=== PATIENT | male | born 1970 | race Caucasian/White ===

== ENCOUNTER 2020-05-14 10:52 | Outpatient (CLI) | payer OTHER, SELFPAY ==
--- NOTE | 2020-05-14 10:55 | ECG_ITS ---
Measurements Intervals [place] Rate: 93 P: 38 PA: 153 QRS: -8 QRSD: 101 T: 14 QT: 329 QTc: 409 Interpretive Statements SINUS RHYTHM VOLTAGE CRITERIA FOR LVH BORDERLINE ECG Electronically Signed On 05-14-2020 11:09:51 GRAIN ORIGINATION SPECIALIST by Андрей Chavez D.O.
== END 2020-05-14 10:53 | disposition home or self-care (01) ==
LOC: ANHSURGERY 10:55
PROVIDERS: Visit Provider Orthopaedic Surgery
DX: Z01.810 Encounter for preprocedural cardiovascular examination (principal); I10 Essential (primary) hypertension
CPT/HCPCS: 93005

== ENCOUNTER → 2020-05-16 05:49 | Outpatient (CLI) | payer OTHER, SELFPAY ==
[2020-05-16 19:11] LABS: SARS-CoV-2 RNA PCR Negative
== END ==
PROVIDERS: Visit Provider Orthopaedic Surgery
DX: Z01.812 Encounter for preprocedural laboratory examination (principal); Z20.822 Contact with and (suspected) exposure to COVID-19
CPT/HCPCS: C9803; U0003; U0005

== ENCOUNTER 2020-05-20 01:02 | Day surgery (SDC) | payer OTHER, SELFPAY ==
[2020-05-13 10:01] VITALS: BMI 27.0
--- NOTE | 2020-05-19 10:59 | WPDANESEPPF ---
Anes - Initial Pre Proc Eval Procedure: Operation Date: 05/20/20 13:30 Proposed Procedures p Left Open Rotator Cuff Repair - Adeel Garner MD Date/Time: 05/19/20 10:59 Surgeon: Adeel Garner MD Pre Op Diagnosis: Left Rotator Cuff Tear Patient Data Age: 49 Gender: M Height: 1.85 m Weight: 93 kg Allergies Allergy/AdvReac Type Severity Reaction Status Date / Time No Known Allergies Allergy Unknown Verified 05/20/20 11:45 Home Medications Medication Instructions Recorded Confirmed Type ramipril 5 mg capsule 5 mg PO BID 12/26/19 05/20/20 History chlorhexidine gluconate 4 % 1 applic TOPICAL ONCE #237 ml 03/17/20 05/20/20 Rx topical liquid aspirin 81 mg PO DAILY 05/13/20 05/20/20 History Patient hx anesthesia problems: post op nausea/vomiting Family hx anesthesia problems: none PMFSH Past Medical History Medical History (Updated 05/19/20 @ 11:00 by Jaime Copeland DO) Factor V Leiden Hypertension Left shoulder pain PONV (postoperative nausea and vomiting) Rotator cuff tendinitis Seasonal allergies Surgical History Surgical History (Updated 05/19/20 @ 11:00 by Jaime Copeland DO) History of cervical spinal surgery Family History Family History Other Diabetes mellitus Heart disease Hypertension Social History Social History Years smoked: 20 Smoking status: Current every day smoker Tobacco type: cigarettes Smoking end date: 03/27/18 Additional smoking assessment comments: 1/2 PACK PER WEEK FOR 20 YEARS Alcohol intake: current Drinks per week: 12 Substance use: never Living arrangements: with family Spiritual care concerns: No Anes - Eval Final PreProcedure Day of Procedure 05/19/20 10:59 Patient weight: overweight Heart: regular rate and rhythm Lungs: clear to auscultation and normal air movement Airway: Mallampati scale class II Neurological: alert and oriented Last oral intake: >/= 8 hours ASA classification: III Emergent: no Anesthetic plan: proceed Anesthesia type and monitoring: general ETT and standard monitoring Informed Consent: The patient's anesthetic plan and its attendant risks and benefits were discussed with the patient/family/POA. Questions were solicited and answers provided to the satisfaction of the patient/family/POA.
--- NOTE | 2020-05-19 11:00 | WPDANESPNB ---
Anes - Peripheral Nerve Block Date/Time: 05/19/20 11:00 I have discussed with the patient/family/POA the placement of a peripheral nerve block for post-operative pain management, including associated risks, benefits, complications, and side effects. Alternative methods of post-operative analgesia were detailed. Questions were solicited and answers provided to the satisfaction of the patient/family/POA. Time-Out: A pre-procedural Time-Out was completed immediately before starting the procedure and confirmed: Patient Identification, Site, Procedure, Patient Position and the Availability of Requisite Equipment. Clinical Indications: Acute post-operative pain management requested by the operative surgeon. Nerve Block Insertion Note Anes-nerve block: interscalene left Patient position: supine Skin prep: chlorhexidine Needle: 22 gauge, stimulating, insulated echogenic needle. Needle length: 50 mm Technique: ultrasound Injectate: bupivacaine 0.5% with epi 5 mcg/ml (30cc- no epi) Observations: tolerated well Complications: none Procedure start time:: 1401 Procedure end time:: 140
[2020-05-20] VITALS (7 sets, daily range): BP systolic 117–133; BP diastolic 79–91; PULSE 66–88; RESP 12–20; TEMP 36.3–37.4; O2SAT 96–100
--- NOTE | 2020-05-20 07:24 | WPDHPUPDATE1 ---
History and Physical Update Update Date/Time: 05/20/20 07:24 History and Physical has been reviewed, including an updated exam of the patient. There are NO changes in the patient's condition. Risks, benefits, and alternatives have been discussed and questions answered. Patient agrees to proceed with procedure.
[2020-05-20] MEDS: FAMOTIDINE 20 MG/2 ML VIAL IV PUSH (13:15)
[2020-05-20] MEDS: SCOPOLAMINE 1.5 MG PATCH TRANSDERM (13:15)
[2020-05-20] MEDS: CELECOXIB 200 MG CAPSULE PO (13:15)
[2020-05-20] MEDS: ACETAMINOPHEN 500 MG TABLET 1000 MG PO (13:15)
[2020-05-20] MEDS: LACTATED RINGERS 1,000 ML 30 ML IV CONT ×2 (13:49→16:27)
[2020-05-20] MEDS: ceFAZolin 2 GM/D5W 50 ML 2 GM/50 ML BAG IVPB (14:28)
--- NOTE | 2020-05-20 16:05 | PM.PROC ---
Procedure Note - Detailed Date of procedure: 05/20/20 Pre-op diagnosis: Left Rotator Cuff Tear Post-op diagnosis: same Procedure performed: REPAIR OF LEFT ROTATOR CUFF Description of procedure: THE PATIENT WAS TAKEN TO THE OPERATING ROOM AND THEN INTUBATED AND PLACED IN THE BEACH CHAIR POSITION. THE LEFT UPPER EXTREMITY WAS PREPPED AND DRAPED IN THE NORMAL STERILE FASHION. AN INCISION WAS MADE IN BETWEEN THE KEISHA-LATERAL ACROMION AND THE AC JOINT. THE FASCIA WAS IDENTIFIED. NEXT A MINI OPEN INCISION WAS MADE THROUGH THE DELTOID MUSCLE EXPOSING THE SUBACROMIAL SPACE. A LIMITED ACROMIOPLASTY WAS PREFORMED. THE ROTATOR CUFF WAS IDENTIFIED. THERE WAS A FULL THICKNESS TEAR TO REGION BETWEEN THE INFRASPINATUS AND SUPRASPINATUS PARTS OF THE CUFF. THERE WAS MILD RETRACTION. THE TEAR MEASURED ABOUT 3 CM FROM ANTERIOR TO POSTERIOR. THE GREATER TUBEROSITY WAS DEBRIDED TO BLEEDING BONE. 2 ARTHREX 5.5 SUTURE ANCHORS WERE PLACED IN TO GOOD BONE AND HAD VERY GOOD BITES. KYLIE-LEX TYPE REPAIRS WERE DONE TO THE ROTATOR CUFF AND THERE WAS GOOD APPROXIMATION TO THE GREATER TUBEROSITY. THE REPAIR WAS EXCELLENT. THERE WAS NO IMPINGEMENT ON THE REPAIR FROM THE ACROMION WITH RANGE OF MOTION. THE WOUND WAS IRRIGATED WITH COPIOUS AMOUNTS OF ANTIBIOTIC SOLUTION. THE DELTOID MUSCLE WAS REPAIRED WITH #2 FIBER WIRE AND 0 VICRYL SUTURE. THE SUBCUTANEOUS LAYER WAS APPROXIMATED WITH 2-0 VICRYL. THE SKIN WAS APPROXIMATED WITH 3-0 STRATOFIX AND DERMABOND. STERILE DRESSING WAS APPLIED. PATIENT WAS EXTUBATED. Anesthesia: GETA Surgeon: Adeel Garner MD Estimated blood loss (mL): 15 Complications: No immediate complications Condition: stable Disposition: PACU
== END 2020-05-20 18:20 | disposition home or self-care (01) ==
PROVIDERS: Visit Provider Orthopaedic Surgery
PROC: (CPT 23420; principal; 2020-05-20 13:30)
DX: M75.122 Complete rotator cuff tear or rupture of left shoulder, not specified as traumatic (principal); G89.18 Other acute postprocedural pain; D68.51 Activated protein C resistance; I10 Essential (primary) hypertension; F17.210 Nicotine dependence, cigarettes, uncomplicated
CPT/HCPCS: 23420; 64415; 93005; A9270; C1713; C9803; J0330; J0690; J1100; J2250; J2405; J2704; J3010; J7120; U0003; U0005

== ENCOUNTER 2021-03-02 17:39 | Emergency (ER) | payer OTHER, SELFPAY ==
[2021-03-02 17:48] VITALS: BP 150/97; PULSE 86; RESP 16; TEMP 37; O2SAT 98
--- NOTE | 2021-03-02 18:06 | ED.URI ---
HPI - URI/Sore Throat General Chief Complaint: Upper Respiratory Infection Stated Complaint: congestion sore throat ear ache History of Present Illness HPI Narrative: This is a 50 year old male that has been having a sore throat, cough , congestion and ear pain. According to patient it has been going on for the past two day. Patient denies any nausea and or vomiting. Related Data Home Medications Medication Instructions Recorded Confirmed ramipril 5 mg capsule 5 mg PO BID 12/26/19 03/02/21 aspirin 81 mg PO DAILY 05/13/20 03/02/21 alprazolam 0.25 mg PO BID PRN 03/02/21 03/02/21 citalopram 20 mg PO DAILY 03/02/21 03/02/21 isotretinoin [Claravis] 40 mg PO BID 03/02/21 03/02/21 Allergies Allergy/AdvReac Type Severity Reaction Status Date / Time No Known Allergies Allergy Unknown Verified 07/23/20 11:46 Review of Systems Review of Systems: Cough, congestion, headache, sore throat All systems reviewed & are unremarkable except as noted in HPI and below PMFSH Past Medical History Medical History Factor V Leiden Hypertension Left shoulder pain PONV (postoperative nausea and vomiting) Rotator cuff tendinitis Seasonal allergies Surgical History Surgical History History of cervical spinal surgery Family History Family History Other Diabetes mellitus Heart disease Hypertension Social History Social History Years smoked: 20 Tobacco type: cigarettes Smoking end date: 03/27/18 Additional smoking assessment comments: 1/2 PACK PER WEEK FOR 20 YEARS Alcohol intake: current Drinks per week: 12 Substance use: never Spiritual care concerns: No Comments At time as signature, I have reviewed and agree with nursing past medical, social, surgical and family history. Please see nursing chart for further information. There is no relevant family history pertinent to the presenting complaint. Exam Narrative: GENERAL:Illl-appearing, well-nourished, and in no acute distress. HEAD:Normocephalic EYES: PERRLA ENT: Nares clear, no rhinorrhea Copious pharygeal erythema enlarged tonsil Mucous membranes moist. CHEST: Clear to auscultation. HEART: Regular rate and rhythm. ABDOMEN: Soft, nontender, normal active bowel sounds. EXTREMITIES: Normal range of motion. SKIN: Warm, dry, no rash. NEURO: No focal deficits. Alert and oriented x3. Course GENERAL LOT ATTENDANT/PA Physician Supervision Negative influenza , Negative Strep Vital Signs Vital signs: Vital Signs Temperature 98.6 F 03/02/21 17:48 Pulse Rate 86 03/02/21 17:48 Respiratory Rate 16 03/02/21 17:48 Blood Pressure 150/97 H 03/02/21 17:48 Pulse Oximetry 98 03/02/21 17:48 Temperature 98.6 F 03/02/21 17:48 Pulse Rate 86 03/02/21 17:48 Respiratory Rate 16 03/02/21 17:48 Blood Pressure 150/97 H 03/02/21 17:48 Pulse Oximetry 98 03/02/21 17:48 MDM - URI/Sore Throat Differential Diagnosis Differential diagnosis: Likely upper respiratory infection, otitis media, sinusitis, viral infection, bronchitis, influenza and pharyngitis Discharge Plan Discharge Clinical Impression: Upper respiratory infection, Acute tonsillitis, Hypertension Patient Disposition: Home, Self-Care Condition: Stable Instructions: Antibiotic Form, Viral Syndrome (ED) Additional Instructions: Take the medication as prescribed. Salt water gargles and/or may use topical anesthetic (eg. Chloraseptic spray) Take tylenol and ibuprofen as needed for pain and fever as directed. Throw away the toothbrush after 24hours of antibiotic. Follow up with primary care provider in 2-3 days if condition is not improving or seek ER visit if your child starts breathing fast/has trouble breathing, is not drinking enough fluids, will not wake up or
== END 2021-03-02 18:34 | disposition home or self-care (01) ==
PROVIDERS: Emergency Provider Nurse Practitioner Family
DX: J06.9 Acute upper respiratory infection, unspecified (principal); J03.90 Acute tonsillitis, unspecified; I10 Essential (primary) hypertension; F17.210 Nicotine dependence, cigarettes, uncomplicated; D68.51 Activated protein C resistance
CPT/HCPCS: 87081; 87804; 87880; 99213; G0463

== ENCOUNTER 2022-04-05 09:48 | Outpatient (CLI) | payer OTHER, SELFPAY ==
[2022-04-05 19:33] LABS: Hematocrit 44.8 % (42.0-52.0); Mean Corpuscular HGB Conc 33.5 g/dl (32-36); Mean Corpuscular Hemoglobin 32.1 pg (26-34); Mean Corpuscular Volume 95.9 fl (80-100); Mean Platelet Volume 9.4 fl (7.4-10.4); Platelet Count Result 243 k/mm3 (150-375); Red Blood Count 4.67 M/mm3 (4.6-6.20); Red Cell Distribution Width 12.6 % (11.5-14.5); White Blood Count 6.1 K/mm3 (4.5-10.0)
[2022-04-05 19:49] LABS: Alanine Aminotransferase 53 U/L (6-50); Albumin Level 4.3 g/dL (3.5-5.1); Alkaline Phosphatase 123 U/L (38-126); Anion Gap 4 mmol/L (8-16); Aspartate Amino Transferase 73 U/L (17-59); Blood Urea Nitrogen 18 mg/dL (9-20); Calcium 8.9 mg/dL (8.4-10.2); Carbon Dioxide 30 mmol/L (22-30); Chloride 105 mmol/L (98-107); Cholesterol 202 mg/dL (0-200); Estimated Glomerular Filt Rate > 60; Glucose 92 mg/dL (65-110); HDL Direct 49 mg/dL; Potassium 4.7 mmol/L (3.4-5.0); Sodium 139 mmol/L (137-145); Triglycerides 84 mg/dL (<150)
[2022-04-05 20:00] LABS: LDL Cholesterol Direct 113 mg/dL
[2022-04-05 20:20] LABS: Prostate Specific Antigen 0.6 ng/mL (< OR = 4.0)
== END 2022-04-05 09:49 | disposition home or self-care (01) ==
PROVIDERS: PCP Family Medicine; Visit Provider Family Medicine
DX: Z00.00 Encounter for general adult medical examination without abnormal findings (principal); D68.51 Activated protein C resistance; I10 Essential (primary) hypertension; J30.2 Other seasonal allergic rhinitis
CPT/HCPCS: 36415; 80053; 80061; 80299; 84153; 85027; G0103

== ENCOUNTER 2022-04-13 12:00 | Outpatient (CLI) | payer OTHER, SELFPAY ==
[2022-04-13 20:33] LABS: Alanine Aminotransferase 47 U/L (6-50); Albumin Level 4.4 g/dL (3.5-5.1); Alkaline Phosphatase 116 U/L (38-126); Aspartate Amino Transferase 60 U/L (17-59); Bilirubin,Total 0.8 mg/dL (0.2-1.3)
[2022-04-13 20:48] LABS: Hepatitis B Surface Antigen Negative (Negative)
[2022-04-13 20:54] LABS: HAV RESULT Negative (Negative); Hepatitis B Core IgM Result Negative (Negative)
[2022-04-13 21:06] LABS: Hepatitis C Virus Antibody Negative (Negative)
== END 2022-04-13 12:01 | disposition home or self-care (01) ==
PROVIDERS: PCP Family Medicine; Visit Provider Family Medicine
DX: R74.8 Abnormal levels of other serum enzymes (principal)
CPT/HCPCS: 36415; 80074; 80076

== ENCOUNTER 2022-05-17 08:58 | Outpatient (CLI) | payer OTHER, SELFPAY ==
--- NOTE | ~2022-05-17 | XR_ITS ---
XR sinus min 3V 05/17/2022 09:11 Indication: Sinusitis Procedure: 5 views paranasal sinuses Comparison: No prior studies for comparison. Findings: There is partial opacification of the right maxillary sinus, consistent with mucosal thicke juan antonio. No air-fluid levels demonstrated. Remainder of the paranasal sinuses are pneumatized. Mastoids are pneumatized. No significant nasal septal deviation. Impression: 1: Partial opacification right maxillary sinus, consistent with sinusitis. Reviewed, dictated and finalized at location L. ER TRIMMER Impression: 1: Partial opacification right maxillary sinus, consistent with sinusitis.
== END 2022-05-17 08:59 | disposition home or self-care (01) ==
LOC: ANHBWCIMG 08:59
PROVIDERS: PCP Family Medicine; Visit Provider Family Medicine
DX: J34.89 Other specified disorders of nose and nasal sinuses (principal)
CPT/HCPCS: 70220

== ENCOUNTER 2022-09-08 14:52 | Outpatient (CLI) | payer OTHER, SELFPAY ==
--- NOTE | ~2022-09-08 | XR_ITS ---
XR shoulder LT min 2V 09/08/2022 15:04 Indication: Left shoulder pain. Procedure: 4 views left shoulder Comparison: 12/26/2019 Findings: No fracture, subluxation or dislocation. No significant soft tissue abnormality. No foreign bodies. Impression: 1: No acute bone or joint abnormality. Reviewed, dictated and finalized at location L. Impression: 1: No acute bone or joint abnormality.
== END 2022-09-08 14:53 | disposition home or self-care (01) ==
LOC: ANHBWCIMG 14:53
PROVIDERS: PCP Family Medicine; Visit Provider Nurse Practitioner Adult Health
DX: M25.512 Pain in left shoulder (principal)
CPT/HCPCS: 73030

== ENCOUNTER 2023-07-20 10:53 | Outpatient (CLI) | payer OTHER, SELFPAY ==
--- NOTE | ~2023-07-20 | XR_ITS ---
Right elbow Technique: AP, oblique, and lateral views were obtained. Clinical History: Pain Findings: No acute fracture or dislocation is seen. Osseous alignment is anatomic. Joint spaces are p reserved. There is enthesopathic change at the triceps tendon insertion. There is no displacement of the fat pads, and no evidence of joint effusion. Impression: Enthesopathic change at the triceps tendon insertion. Reviewed, dictated and finalized at location M. Impression: Enthesopathic change at the triceps tendon insertion.
--- NOTE | ~2023-07-20 | XR_ITS ---
Right Knee Technique: AP, lateral, and sunrise views were obtained. Clinical History: Pain Findings: No fracture or dislocation is seen. Osseous alignment is anatomic. There is an elongated ch ondroid lesion at the distal femoral shaft, most compatible with enchondroma, measuring at least 8 cm in length. Joint spaces are preserved without degenerative or erosive change. Soft tissues are unrem arkable. No joint effusion is seen. Impression: No acute abnormality. 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 Reviewed, dictated and finalized at location M. Impression: No acute abnormality. 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
== END 2023-07-20 10:54 | disposition home or self-care (01) ==
LOC: ANHBWCIMG 10:56
PROVIDERS: PCP Nurse Practitioner Adult Health; Visit Provider Nurse Practitioner Adult Health
DX: M77.8 Other enthesopathies, not elsewhere classified (principal); M25.561 Pain in right knee
CPT/HCPCS: 73070; 73562

== ENCOUNTER 2023-08-31 07:22 | Day surgery (SDC) | payer OTHER, SELFPAY ==
[2023-07-26 06:16] VITALS: BMI 28.3
[2023-08-31 08:56] VITALS: BP 117/95; PULSE 66; RESP 18; TEMP 36.2; O2SAT 100; BMI 27.6
[2023-08-31] MEDS: LACTATED RINGERS 1,000 ML 150 ML IV CONT (09:07)
--- NOTE | 2023-08-31 09:27 | WPDANESEPPF ---
Anes - Initial Pre Proc Eval Procedure: Operation Date: 08/31/23 10:00 Proposed Procedures p Screening Colonoscopy - Sean Lance MD Date/Time: 08/31/23 09:27 Surgeon: Sean Lance MD Pre Op Diagnosis: Screening for neoplasm of colon Patient Data Age: 52 Gender: M Height: 1.85 m Weight: 95.1 kg Last Vital Signs Temp 36.2 C L 08/31/23 08:56 Pulse 66 08/31/23 08:56 Resp 18 08/31/23 08:56 BP 117/95 H 08/31/23 08:56 Pulse Ox 100 08/31/23 08:56 O2 Del Method Room Air 08/31/23 08:56 Allergies Allergy/AdvReac Type Severity Reaction Status Date / Time No Known Allergies Allergy Unknown Verified 08/31/23 08:53 Home Medications Medication Instructions Recorded Confirmed Type ramipril 10 mg capsule 10 mg PO DAILY #90 caps 12/21/22 08/31/23 Rx citalopram 20 mg tablet 20 mg PO DAILY #90 tabs 05/01/23 08/31/23 Rx mirtazapine 7.5 mg tablet See Rx Instructions .Route 07/18/23 08/31/23 Rx .COMPLEX #90 tabs Vitamin D3 1 tab-cap PO DIRECTED 08/24/23 08/31/23 History krill oil 1 tab-cap PO DIRECTED 08/24/23 08/31/23 History Patient hx anesthesia problems: none Family hx anesthesia problems: none Results Review: All pre-operative results and documents have been reviewed as part of the pre-operative evaluation. [facility] Past Medical History Medical History Factor V Leiden Hypertension Left shoulder pain PONV (postoperative nausea and vomiting) Rotator cuff tendinitis Seasonal allergies Surgical History Surgical History History of cervical spinal surgery Family History Family History Father , Coronary event 06/2016 Acute myocardial infarction Cerebrovascular accident Depression Heart disease Hypertension Congestive heart failure (CHF) Mother Age: 78 Depression Diabetes mellitus Charcot's joint arthropathy in type 2 diabetes mellitus Congestive heart failure (CHF) Social History Social History Years smoked: 20 Smoking status: Former smoker Tobacco type: e-cigarettes/vaping Second hand tobacco smoke exposure: No Smoking end date: 03/27/18 Additional smoking assessment comments: 1/2 PACK PER WEEK FOR 20 YEARS Alcohol intake: current Drinks per week: 12 Substance use: current Substance use type: does not use Lack of Transportation: No Lack of Food: Never True Current Housing: I Have Housing Concerned About Future Housing: No Difficulty Paying Gas/Electric Bills: No Difficulty Paying for Meds: No Currently Unemployed: No Education: Associate Degree Living arrangements: with family Occupation/Education: occupation 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 [employer] Gender identity (if verbalized by the patient): Male Sexual Orientation (if Verbalized by the Patient): Straight or Heterosexual Spiritual care concerns: No Agree to blood products: Yes Anes - Eval Final PreProcedure Day of Procedure 08/31/23 09:27 Patient weight: overweight Heart: regular rate and rhythm Lungs: clear to auscultation Airway: Mallampati scale class II Neurological: alert and oriented Last oral intake: >/= 8 hours ASA classification: II Emergent: no Anesthetic plan: proceed Anesthesia type and monitoring: general GIVS and standard monitoring Results Review: All pre-operative results and documents have been reviewed as part of the pre-operative evaluation. Informed Consent: The patient's anesthetic plan and its attendant risks and benefits were discussed with the patient/family/POA. Questions were solicited and answers provided to the satisfaction of the patient/family/POA.
--- NOTE | 2023-08-31 09:39 | PM.HPGS ---
History of Present Illness History of Present Illness Consent: Risks, benefits, and alternatives have been discussed and questions answered. Patient agrees to proceed with procedure. Chief complaint: history of colon polyps Narrative: Pablo Ding is a 52 year old male presents for screening colonoscopy. Patient's current weight appetite and bowel movements are normal. Patient denies abdominal pain. He has had no bleeding. Family history noncontributory. He reports having had prior colon polyps at previous exam 5 years ago. Review of Systems Review of Systems: All systems reviewed & are unremarkable except as noted in HPI and below PMFSH Past Medical History Medical History Factor V Leiden Hypertension Left shoulder pain PONV (postoperative nausea and vomiting) Rotator cuff tendinitis Seasonal allergies Surgical History Surgical History History of cervical spinal surgery Family History Family History Father , Coronary event 06/2016 Acute myocardial infarction Cerebrovascular accident Depression Heart disease Hypertension Congestive heart failure (CHF) Mother Age: 78 Depression Diabetes mellitus Charcot's joint arthropathy in type 2 diabetes mellitus Congestive heart failure (CHF) Social History Social History Years smoked: 20 Smoking status: Former smoker Tobacco type: e-cigarettes/vaping Second hand tobacco smoke exposure: No Smoking end date: 03/27/18 Additional smoking assessment comments: 1/2 PACK PER WEEK FOR 20 YEARS Alcohol intake: current Drinks per week: 12 Substance use: current Substance use type: does not use Lack of Transportation: No Lack of Food: Never True Current Housing: I Have Housing Concerned About Future Housing: No Difficulty Paying Gas/Electric Bills: No Difficulty Paying for Meds: No Currently Unemployed: No Education: Associate Degree Living arrangements: with family Occupation/Education: occupation 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 [employer] Gender identity (if verbalized by the patient): Male Sexual Orientation (if Verbalized by the Patient): Straight or Heterosexual Spiritual care concerns: No Agree to blood products: Yes Meds Home Medications and Allergies Home Medications Medication Instructions Recorded Confirmed Type ramipril 10 mg capsule 10 mg PO DAILY #90 caps 12/21/22 08/31/23 Rx citalopram 20 mg tablet 20 mg PO DAILY #90 tabs 05/01/23 08/31/23 Rx mirtazapine 7.5 mg tablet See Rx Instructions .Route 07/18/23 08/31/23 Rx .COMPLEX #90 tabs Vitamin D3 1 tab-cap PO DIRECTED 08/24/23 08/31/23 History krill oil 1 tab-cap PO DIRECTED 08/24/23 08/31/23 History Allergies Allergy/AdvReac Type Severity Reaction Status Date / Time No Known Allergies Allergy Unknown Verified 08/31/23 08:53 Vital Signs Vital Signs - 24 hr 08/31/23 08:56 Temperature 97.1 F L Pulse Rate 66 Respiratory Rate 18 Blood Pressure 117/95 H Pulse Oximetry 100 Oxygen Delivery Room Air Exam Narrative: Physical exam reveals patient alert. Vital signs stable. HEENT exam is unremarkable. Patient is anicteric. Lungs are clear to auscultation and percussion. Heart is without murmur or extra sounds. Abdomen bowel sounds are present soft nontender with no organomegaly. Bowel external rectal exam normal. Assessment and Plan Assessment and plan (1) Screening for colon cancer: Code(s): Z12.11 - Encounter for screening for malignant neoplasm of colon Status: Acute Assessment and Plan: Patient reports having had colonoscopy with polyps being identified 5 years ago. Plan for surveillance colonoscopy now. Consider follow-u
[2023-08-31] MEDS: SIMETHICONE ORAL SUSPENSION 20 MG/0.3 ML 30 ML BOTTLE 0.6 ML IRRIGATION (10:40)
[2023-08-31 10:47] VITALS: BP 106/74; PULSE 81; RESP 16; O2SAT 98
[2023-08-31 10:57] VITALS: BP 112/69; PULSE 72; RESP 16; O2SAT 99
[2023-08-31 11:07] VITALS: BP 120/66; PULSE 75; RESP 20; O2SAT 99
--- NOTE | 2023-08-31 11:18 | WPDANESPN ---
Anes - Prog Note Post-Op Date/Time: 08/31/23 11:18 Cardiovascular status: normal Respiratory status: normal Airway patency: baseline Mental status: baseline Post-Op hydration status: normal Vital Signs: Last Vital Signs Temp 36.2 C L 08/31/23 08:56 Pulse 75 08/31/23 11:07 Resp 20 08/31/23 11:07 BP 120/66 08/31/23 11:07 Pulse Ox 99 08/31/23 11:07 O2 Del Method Room Air 08/31/23 11:07 Pain Score (VAS): 0 I/O: Intake & Output 08/30/23 08/31/23 08/31/23 23:59 07:59 15:59 Intake Total 500 Balance 500 Patient Feedback: Patient satisfied with anesthetic care.
== END 2023-08-31 11:15 | disposition home or self-care (01) ==
PROVIDERS: PCP Nurse Practitioner Adult Health; Visit Provider Internal Medicine Gastroenterology
PROC: 0DJD8ZZ Inspection of Lower Intestinal Tract, Via Natural or Artificial Opening Endoscopic (ICD-10-PCS; CPT 45378; principal; 2023-08-31 10:00)
DX: Z86.010 Personal history of colon polyps (principal); K64.8 Other hemorrhoids
CPT/HCPCS: 45378

== ENCOUNTER 2023-11-24 08:12 | Emergency (ER) | payer OTHER, SELFPAY ==
[2023-11-24 08:22] VITALS: BP 115/87; PULSE 77; RESP 16; TEMP 36.3; O2SAT 100
--- NOTE | 2023-11-24 08:36 | ED.SKABFB ---
HPI - Skin/Abscess/Foreign Bdy General Chief complaint: Skin/Abscess/Foreign Body Stated complaint: surgical glue reaction/chin Time Seen by Provider: 11/24/23 08:35 Source: patient, RN notes reviewed and old records reviewed Mode of arrival: ambulatory Limitations: no limitations History of Present Illness HPI narrative: 53-year-old male who presents to [facility] with complaints of having a gum graft 2 days ago to his lower gum in the anterior aspect by his dentist. Patient reports that he is allergic to skin glue and dentist used the skin glue on gum graft. Patient states that he has swelling to his lower lip with some blisters on it, underneath his lip and chin also due to his allergy. Patient denies any shortness of breath or any difficulty swallowing, no trismus noted or any Erik angina. MD complaint: other (rash allergic reaction) Onset (ago): day(s) (2) Related Data Allergies Allergy/AdvReac Type Severity Reaction Status Date / Time No Known Allergies Allergy Unknown Verified 11/25/23 18:27 Review of Systems Review of Systems: CONSTITUTIONAL: Denies fever, chills, or sweats. CARDIOVASCULAR: Denies chest pain, palpitations, or edema. RESPIRATORY: Denies cough or dyspnea. SKIN: Reports lower lip swelling with redness and some blisters noted, oozing some yellow fluid,minimal swelling under lip and redness on chin. MUSCULOSKELETAL: Denies joint pain or myalgia. NEUROLOGIC: Denies headache, numbness, or weakness. All systems reviewed & are unremarkable except as noted in HPI and below PMFSH Past Medical History Medical History Anxiety Factor V Leiden Hypertension Left shoulder pain PONV (postoperative nausea and vomiting) Rotator cuff tear, left Rotator cuff tendinitis Seasonal allergies Upper respiratory infection Surgical History Surgical History History of cervical spinal surgery Family History Family History Father , Coronary event 06/2016 Acute myocardial infarction Cerebrovascular accident Depression Heart disease Hypertension Congestive heart failure (CHF) Mother Age: 78 Depression Diabetes mellitus Charcot's joint arthropathy in type 2 diabetes mellitus Congestive heart failure (CHF) Social History Social History Years smoked: 20 Smoking status: Former smoker Tobacco type: e-cigarettes/vaping Second hand tobacco smoke exposure: No Smoking end date: 03/27/18 Additional smoking assessment comments: 1/2 PACK PER WEEK FOR 20 YEARS Alcohol intake: current Drinks per week: 12 Substance use: current Substance use type: does not use Lack of Transportation: No Lack of Food: Never True Current Housing: I Have Housing Concerned About Future Housing: No Difficulty Paying Gas/Electric Bills: No Difficulty Paying for Meds: No Currently Unemployed: No Education: Associate Degree Living arrangements: with family Occupation/Education: occupation 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 There is no relevant family history pertinent to the presenting complaint Exam Narrative: GENERAL: Well-appearing, well-nourished, and in no acute distress. HEAD: Normocephalic, atraumatic. EYES: PERRLA, conjunctivae clear, and EOMI. ENT: Mucous membranes moist. Oropharynx without edema, erythema or lesions. no trismus or Erik angina, anterior gum graft to lower anterior gum healing NECK: Supple. No lymp
== END 2023-11-24 09:15 | disposition home or self-care (01) ==
PROVIDERS: Emergency Provider Registered Nurse; PCP Family Medicine
DX: T78.49XA Other allergy, initial encounter (principal); I10 Essential (primary) hypertension; D68.51 Activated protein C resistance
CPT/HCPCS: 99213; G0463

== ENCOUNTER 2024-12-17 07:00 | Outpatient (CLI) | payer OTHER, SELFPAY ==
--- NOTE | ~2024-12-17 | MR_ITS ---
EXAMINATION: MR femur RT wo con, MR knee RT wo con DATE: 12/17/2024 07:54 INDICATION: Right knee pain TECHNIQUE: 1. Magnetic resonance imaging (MRI) of the right femur was performed without intravenous contrast. Sequences include axial, sagittal and coronal T1-weighted FSE and fluid sensitive FSE STIR. The contralateral left femur is included on the coronal images. 2. MRI of the right knee was performed without intravenous contrast. Sequences included coronal PD-weighted FSE, coronal PD-weighted FS FSE, sagittal T2- weighted FSE, sagittal PD-weighted FS FSE and axial PD weighted fat saturated FSE. COMPARISON: None. FINDINGS: Medial compartment: Longitudinal horizontal tear extending to the inferior articular surface of the posterior horn and posterior body of the medial meniscus. There are a few small para meniscal cysts at the periphery of the anterior margin of the tear along the posterior body with a large multilobulated para labral at the periphery of the lateral side of posterior horn which measures 1.7 cm medial collateral and measuring 7 x 3 mm in maximal orthogonal dimensions. There is partial thickness chondral ulceration and deep fissuring extending from the anterior to the posterior weightbearing medial femoral condyle with small regions of subarticular edema-like signal change underlying the lateral aspect of the central weightbearing medial femoral condyle. Cartilage along the medial tibial plateau is normal. Lateral compartment: Subtle increased signal along the inferior articular surface at the inner third of the posterior horn of the lateral meniscus consistent with small likely longitudinal horizontal tear. Articular cartilage is normal. Patellofemoral compartment: Deep chondral ulceration with underlying mild cortical irregularity and subarticular edema-like signal change extending across the central aspect of the trochlear groove involving portions of the immediately adjacent medial lateral trochlea. Small region of deep chondral fissuring at the junction of the medial and odd patellar facets. Ligaments and tendons: Anterior and posterior cruciate ligaments are normal. The medial collateral ligament and fibular collateral ligament complex are normal. Mild distal quadriceps tendinopathy with small enthesophyte at its patellar insertion. Moderate tendinopathy along the superficial aspect of the proximal patellar ten don. Additional moderate tendinopathy with small partial-thickness tear at the central tibial insertion of the distal patellar tendon. The visualized medial and lateral hamstring tendons as well as the iliotibial band are normal. Fluid: Physiologic amount of fluid in the joint space. No loose osteochondral bodies identified. There is increased fluid signal in the superficial suprapatellar fat pad which can be seen with fat pad impingement syndrome. Osseous/other: There is an intramedullary lesion in the distal right femoral diaphysis which extends 7.7 cm craniocaudally and measures up to 2.2 cm in maximal orthogonal dimensions, filling the intramedullary space. The lesion has a cluster of grape like appearance of increased fluid signal with ring and arc-like pattern of chondroid matrix evident on the prior radiographs consistent with a large enchondroma. There is no evident endosteal scalloping on either the current study or prior radiographs to suggest aggressive enchondroma or malignant chondrosarcoma. Marrow signal is otherwise normal throughout. No fracture, osteonecrosis or other pathologic marrow replacing process. Normal and symmetric muscle bulk throughout the bilateral thighs. Partially visualized large diverticulum arising from the left side of the bladder. No pathologically enlarged right pelvic or inguinal lymphadenopathy. Neurovascular structures in the right thigh are unremarkable. IMPRESSION: 1. Longitudinal horizontal tears at the posterior horn of the lateral meniscus and more extensively at the posterior horn and posterior body of the medial meniscus, lateral with some associated peripheral parameniscal cyst. 2. Mild medial and patellofemoral osteoarthritis with regions of high-grade chondromalacia along the weightbearing medial femoral condyle and at the trochlea. 3. Mild distal quadriceps tendinopathy and moderate proximal and distal patellar tendinopathy with very small intrasubstance tear at the tibial insertion of the distal patellar tendon. 4. Edema in the superficial suprapatellar fat pad consistent with fat pad impingement syndrome. 5. Large benign enchondroma without aggressive features in the distal right femoral diaphysis. 6. Partially visualized large bladder diverticulum arising from the left side of the bladder. Reviewed, dictated and finalized at location A. IMPRESSION: 1. Longitudinal horizontal tears at the posterior horn of the lateral meniscus and more extensively at the posterior horn and posterior body of the medial men iscus, lateral with some associated peripheral parameniscal cyst. 2. Mild medial and patellofemoral osteoarthritis with regions of high-grade cho ndromalacia along the weightbearing medial femoral condyle and at the trochlea. 3. Mild distal quadriceps tendinopathy and moderate proximal and distal patella r tendinopathy with very small intrasubstance tear at the tibial insertion of t he distal patellar tendon. 4. Edema in the superficial suprapatellar fat pad consistent with fat pad impin gement syndrome. 5. Large benign enchondroma without aggressive features in the distal right fem oral diaphysis. 6. Partially visualized large bladder diverticulum arising from the left side o f the bladder.
== END 2024-12-17 07:01 | disposition home or self-care (01) ==
LOC: MICIMG 07:01
PROVIDERS: PCP Family Medicine; Visit Provider Nurse Practitioner Family
DX: M23.251 Derangement of posterior horn of lateral meniscus due to old tear or injury, right knee (principal); M23.321 Other meniscus derangements, posterior horn of medial meniscus, right knee; M17.11 Unilateral primary osteoarthritis, right knee; M77.8 Other enthesopathies, not elsewhere classified; R60.9 Edema, unspecified; D23.70 Other benign neoplasm of skin of unspecified lower limb, including hip; N32.3 Diverticulum of bladder; M89.8X5 Other specified disorders of bone, thigh; M25.561 Pain in right knee
CPT/HCPCS: 73718; 73721

== ENCOUNTER 2025-03-13 13:28 | Outpatient (CLI) | payer OTHER, SELFPAY ==
--- NOTE | ~2025-03-13 | XR_ITS ---
EXAMINATION: XR foot RT min 3V, 03/13/2025 13:37 BULK RECEIVER HISTORY: RULE OUT STRESS FX, TOP/MEDIAL INSTEP AND ARCH PAIN, SUDDEN COMPARISON: No comparisons available. Findings: No acute fracture or malalignment. No significant degenerative changes. Soft tissues unremarkable. Impression: No acute fracture or malalignment. Reviewed, dictated and finalized at location P. RECEIVER Impression: No acute fracture or malalignment.
--- OUTSIDE RECORDS SUMMARY | 2025-03-13 14:30 | XMS_ITS | Patient Health Record ---
Author Organization [facility] Address [address] [place] [address] Care Team Providers Care Lease Picker Name Role Phone Roddy Francis III [phone] Allergies Allergen (clinical drug ingredient) Drug/Non Drug Allergy documented on EMR Reaction Allergy Type Onset Date Status surgical glue (uncoded) Unknown Allergy Active Reason For Referral No Information Medications Medication SIG (Take, Route, Fr equency, Duration) Notes Start Date End Date Status ramipril Active Tazarotene 0.1% cream 1 gertrudis applied topi jean-claude to scalp once a day (in the evening); Duration: 30 days 10/18/2024 04/15/2025 Acti ve mirtazapine Active Social History Tobacco Use: Social History Observation Description Date Details (start date - stop date) Former Smoker NA - NA Social History Drug/Alcohol: Social Info Question Answer Notes AUDIT-C (Standard) Did you have a drink containing alcohol in the past year? Yes How often did you have a drink containing alcohol in the past year? Declined to specify (0 point) How many drinks did you have on a typical day when you were drinking in the past year? Declined to specify (0 point) How often did you have six or more drinks on one occasion in the past year? 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 Lesion is benign in appearance on today's exam and no treatment is needed at this time. Advised patient on ABCDE's of moles and to contact office is any change is noted on lesion(s) and return for evaluation. 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 Discussed that these are genetic. Patient was cautioned that they may bleed more readily if traumatized. They will monitor for changes. 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 It is due to a decrease of melena in the skin, typically caused by sun exposure. Wearing sunscreen is important to prevent further hypopigmentation. Monitor lesions for any changes in appearance and return for evaluation if noted. *Acute uncomplicated 10/18/2024 Inflamed seborrheic keratosis (ICD-10 - L82.0) * Acute Uncomplicated Illness/Injury. These have been irritated and bleeding, which interferes with range of motion and normal function. After the risks and benefits were discussed, cryotherapy was performed to eradicate the impediment. Patient handled procedure well., 10/18/2024 Lipoma of skin and subcutaneous tissue (ICD-10 - D17.30) Lipomas are benign fatty tumors. They usually remain stable and are asymptomatic. No treatment is necessary. Lipomas can be removed via surgical excision. 10/18/2024 Lentigo (ICD-10 - L81.4) Discussed benign nature of sun damaged skin with patient. No treatment necessary today. Advised pt of importance of sunscreen with SPF 30+ every 2 hours they are exposed to sun (even if inside, near windows, in the car, etc.) Benign/minor* 10/18/2024 Seborrheic keratosis (ICD-10 - L82.1) *Benign/Minor. Discussed that these are quite common and usually appear after age 40. Patient will monitor and return to clinic if any changes occur. 10/18/2024 Folliculitis (ICD-10 - L73.9) Folliculitis is an infection of the hair follicle that can persist for several weeks. Patient instructed to apply antibacterial soap and/or benzoyl peroxide wash to affected areas in shower. Acute uncomplicated Plan Of Treatment No Information Insurance Providers Payer Name Payer Address Payer Phone Subscriber Number Group Number Insured Name Patient Relationship to Insured Coverage Start Date Coverage End Date [employer] [address] [address] [place] [address] [id number] Pablo Ding Self - patient is the insured Medical (General) History Medical History History ICD Code Hypertension Folliculitis Surgical History Surgery Date(Month/Year) Cervical Spine Repair - C4/5 2017 Knee Repair Lipoma removal x 2 2019 Left Shoulder Surgery 2020
--- OUTSIDE RECORDS SUMMARY | 2025-03-13 14:30 | XMS_ITS | Encounter Summary ---
Author Organization [facility] Address [address] [place] [address] Care Team Providers Care Chisel Worker Name Role Phone JoanaNidia Primary Care Provider Wanda cali Encounter Details Date Type Department Care Team (Late st Contact Info) Description 05/06/2024 Lab Requisition [facility] - DermPath Lab [address] [place] [id number] Melanie Chadwick MD [address] [facility] [address] [place] [address] Social History Tobacco Use Types Packs/Day Years Used Date Smoking Tobacco: Never Assessed Sex and Gender Information Value Date Recorded Sex Assigned at Not on file Legal Sex Male 7:45 PM FORM DESIGNER Gender Identity Not on file Sexual Orientation Not on file documented as of this encounter Plan of Treatment Not on file documented as of this encounter Procedures Procedure Name Priority Date/Time Associated Diagnosis Comments DERMATOPATHOLOGY Routine 05/06/2024 10:5 9 AM FORM DESIGNER documented in this encounter Results * DERMATOPATHOLOGY (05/06/2024 10:59 AM FORM DESIGNER) Case Report Dermatopathology Report Case: [id number] Authorizing Provider: Melanie Chadwick MD Collected: 05/06/2024 10:59 AM Ordering Location: [facility] - Received: 05/07/2024 06:07 AM DermPath Lab Pathologist: Rashida García MD Specimen: Skin, right forearm 5:09 PM FORM DESIGNER DERMATOPATHOLOGY LABORATORY Final Diagnosis Specimen A. SKIN, right forearm: ANGIOLIPOMA (D17.20) 5 5:09 PM [facility] DERMATOPATHOLOGY LABORATORY at [address]09 FORM DESIGNER Clinical History Lipoma R/O Atypia Check margins 5:09 PM [facility] DERMATOPATHOLOGY LABORATORY Gross Description Specimen A: Received is one formalin filled container labeled with the patient's name and designated right forearm. The specimen consists of a [id number] mm piece of skin. The specimen is serially sectioned and a customer field representative section is submitted in cassette 1. Jar 1. 5 5:09 PM [facility] DERMATOPATHOLOGY LABORATORY Microscopic Description Specimen A. SKIN, right forearm: There are numerous mature adipocytes associated with an increased number of blood vessels. 5:09 PM [facility] DERMATOPATHOLOGY LABORATORY Disclaimer An external and internal positive and negative controls are appropriate for the histochemical, immunohistochemical and immunofluorescence stain(s) in this case (if any), except where stated explicitly. The performance characteristics of the stain(s) cited in this report were developed and its performance characteristic determined by the Dermatopathology Laboratory at [facility], directed by Dr. Bruce Malloy. These tests need not be, and therefore are not, approved by the [place] Food and Drug Administration. The tests are used for clinical purposes. Billing Codes Specimen Charges Stain Charges 78180 1 5 5:09 PM [facility] DERMATOPATHOLOGY LABORATORY Embedded Images 5:09 PM [facility] DERMATOPATHOLOGY LABORATORY Pathology/Cytolo gy TISSUE SPECIMEN FROM SKIN / Unknown 05/06/2024 10:59 AM FORM DESIGNER 05/07/2024 6:07 AM [facility] us Melanie Chadwick MD LAB - PATHOLOGY/CYTOLOGY ORD ERABLES Final Result DERMATOPATHOLOGY LABORATORY [facility] - Department of Dermatology [address], [address] [phone] documented in this encounter Visit Diagnoses Not on filedocumented in this encounter Care Teams Chisel Worker Relationship Specialty Start Date End Date Nidia Bernard PCP - General 06/06/11 documented as of this encounter
--- OUTSIDE RECORDS SUMMARY | 2025-03-13 14:30 | XMS_ITS | Encounter Summary ---
Author Organization [facility] Address [address] [place] [address] Care Team Providers Care Licensed Plumber Name Role Phone RomainasmitasilvestreNidia Primary Care Provider Wanda cali Encounter Details Date Type Department Care Team (Late st Contact Info) Description 04/16/2018 Lab Requisition [facility] DermPath Lab [address] [facility] [place] [address] Melanie Chadwick MD [address] [facility] [address] [place] [address] Social History Tobacco Use Types Packs/Day Years Used Date Smoking Tobacco: Never Assessed Sex and Gender Information Value Date Recorded Sex Assigned at Not on file Legal 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 STILL 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 Gender Identity Not on file Sexual Orientation Not on file documented as of this encounter Plan of Treatment Not on file documented as of this encounter Procedures Procedure Name Priority Date/Time Associated Diagnosis Comments DERMATOPATH TECHNICAL REPORT Routine 04/13/2018 12:00 AM HEAD STILL OPERATOR documented in this encounter Results * DERMATOPATH TECHNICAL REPORT (04/13/2018 12:00 AM HEAD STILL OPERATOR) Case Report Dermatopathology Report Case: [id number] Authorizing Provider: Melanie Chadwick MD Collected: 04/13/2018 12:00 AM Pathologist: Tori Malloy MD Received: 04/16/2018 08:07 AM Specimen: Skin, left arm 9 1:11 PM HEAD STILL OPERATOR DERMATOPATHOLOGY LABORATORY Addendum 1 At the request of the diagnosing physician, the technical component for MART-1/Melan A was performed by [facility] Dermatopathology Laboratory. 1:11 PM [facility] DERMATOPATHOLOGY LABORATORY Addendum electronically signed by Tori Malloy MD on 04/20/2018 at 1311 HEAD STILL OPERATOR Clinical History R/O BCC, nevus, melanoma. New pink papule. Check margins. 1:11 PM [facility] DERMATOPATHOLOGY LABORATORY Gross Description Specimen A: Received is one formalin filled container labeled with the patient's name and designated left arm. The specimen consists of a shave measuring [id number]. The margin is inked green. Jar 0. [facility] Dermatopathology Laboratory performed the technical component only. 1:11 PM [facility] DERMATOPATHOLOGY LABORATORY Embedded Images 1:11 PM [facility] DERMATOPATHOLOGY LABORATORY DISCLAIMER An external and internal positive and negative controls are appropriate for the histochemical, immunohistochemical and immunofluorescence stain(s) in this case (if any), except where stated explicitly. The performance characteristics of the stain(s) cited in this report were developed and its performance characteristic determined by the Dermatopathology Laboratory at [facility], directed by Dr. Bruce Malloy. These tests need not be, and therefore are not, approved by the [place] Food and Drug Administration. The tests are used for clinical purposes. 1:11 PM [facility] DERMATOPATHOLOGY LABORATORY at 1216 HEAD STILL OPERATOR Pathology/Cytolog y TISSUE SPECIMEN FROM SKIN / Unknown 04/13/2018 04/16/2018 8:07 AM HEAD STILL OPERATOR us Melanie Chadwick MD LAB - PATHOLOGY/CYTOLOGY ORD ERABLES Edited Result - Final DERMATOPATHOLOGY LABORATORY [facility] - Department of Dermatology [address] 5th [place] [address], [facility] [phone] documented in this encounter Visit Diagnoses Not on filedocumented in this encounter Care Teams Licensed Plumber Relationship Specialty Start Date End Date Nidia Bernard PCP - General 06/06/11 documented as of this encounter
--- OUTSIDE RECORDS SUMMARY | 2025-03-13 14:30 | XMS_ITS | Clinical Summary ---
Author Organization [facility] Address [address] [place] [address] Care Team Providers Care Chiropractic Care Name Role Phone Nidia Bernard Primary Care Provider Wanda cali Source Comments [facility],non-owned Affiliates and Associated Physician Practices is amultiple site organization consisting of ambulatory clinics and hospital sitesin [place], [place], [place] and [place]. This disclosure is being madepursuant to the Care Everywhere program and may not contain all information available regarding this patient. 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 Gender Identity Not on file Sexual Orientation Not on file Plan of Treatment Health Maintenance Due Date Last Done Comments COLOGUARD (AGES 45-75) - COL ON CA SCREENING 1968 COLON MONITORING 1968 COLONOSCOPY - COLON CA SCREENING 1968 CT COLONOGRAPHY - COLON CA SCREENING 1968 Colorectal Cancer Screening 1968 FIT - COLON CA SCREENING 1968 FLEX SIG - COLON CA SCREENING 1968 LIPID TESTING 1968 HIV SCREENING 09/18/1983 HEPATITIS C SCREENING 09/13/1986 DTAP/TDAP/TD VACCINES (1 - Tdap) 09/18/1987 HEPATITIS B VACCINE (1 of 3 - 19+ 3-dose series) 09/18/1987 PNEUMOCOCCAL VACCINE 50+ (1 of 1 - PCV) 2018 ZOSTER VACCINE (1 of 2) 2018 DEPRESSION SCREENING 03/27/2024 COVID-19 VACCINE (1 - 2024-2 6 season) 2024 INFLUENZA VACCINE (#1) 2024 HIB VACCINE Aged Out No longer eligi ble based on patient's age to complete this topic HPV VACCINE Aged Out No longer eligi ble based on patient's age to complete this topic MENINGOCOCCAL (Group B) VACC INE SHARED DECISION-MAKING Aged Out No longer eligibl e based on patient's age to complete this topic MENINGOCOCCAL GROUPS A/C/Y/W VACCINE Aged Out No longer eligible b ased on patient's age to [place] [address] [place] [address] [address] [facility] Care Teams Chiropractic Care Relationship Specialty Start Date End Date Nidia Bernard PCP - General 06/06/11
== END 2025-03-13 13:29 | disposition home or self-care (01) ==
PROVIDERS: PCP Family Medicine; Visit Provider Family Medicine
DX: M79.673 Pain in unspecified foot (principal); M79.671 Pain in right foot
CPT/HCPCS: 73630